=== PATIENT | male | born 1985 | race Caucasian/White ===

== ENCOUNTER 2017-07-03 02:07 | Emergency (ER) | payer MEDICAID ==
[~2017-07-03] VITALS: Ht 172.7 cm; Wt 80.5 kg
[~2017-07-03 02:07] MED LIST: PANT-47 PO; PRED5TAB PO
[2017-07-03 02:13] VITALS: BP 148/78
[2017-07-03] MEDS ORDERED: PENI500T2 PO (02:29)
[2017-07-03] MEDS ORDERED: dexamethasone 4mg/ml inj IM SCH (02:30)
== END 2017-07-03 03:10 | disposition home or self-care (01) ==
LOC: ER 02:07
DX: J02.9 Acute pharyngitis, unspecified (principal); Z88.2 Allergy status to sulfonamides; Z88.8 Allergy status to other drugs, medicaments and biological substances
CPT/HCPCS: 96372; 99283; J1100